=== PATIENT | male | born 1985 | race Caucasian/White ===

== ENCOUNTER 2021-03-22 21:34 | Emergency (ER) | payer SELFPAY ==
[~2021-03-22] VITALS: Ht 175.2 cm; Wt 86.2 kg
== END 2021-03-22 22:32 | disposition left against medical advice (07) ==
LOC: ED 21:34
DX: T50.991A Poisoning by other drugs, medicaments and biological substances, accidental (unintentional), initial encounter (principal); R40.20 Unspecified coma; Z53.21 Procedure and treatment not carried out due to patient leaving prior to being seen by health care provider; Y92.89 Other specified places as the place of occurrence of the external cause

== ENCOUNTER → 2023-06-17 | Outpatient (CLI) | payer SELFPAY | END | disposition home or self-care (01) | LOC: LAB 16:45 | PROVIDERS: ATTEND Family Medicine | DX: F90.0 Attention-deficit hyperactivity disorder, predominantly inattentive type (principal) ==

== ENCOUNTER → 2023-06-24 | Outpatient (CLI) | payer SELFPAY | END | disposition home or self-care (01) | LOC: LAB 16:55 | PROVIDERS: ATTEND Family Medicine | DX: F15.90 Other stimulant use, unspecified, uncomplicated (principal) ==

== ENCOUNTER → 2023-07-07 | Outpatient (CLI) | payer OTHER ==
[2023-07-07 13:36] LABS: URINE AMPHETAMINES Negative (1000ng/ml); URINE BARBITURATES Negative (200ng/ml); URINE BENZODIAZEPINES Negative (200ng/ml); URINE CANNABINOIDS (THC) Negative (50ng/ml); URINE COCAINE Negative (300ng/ml); URINE METHADONE Negative (300ng/ml); URINE OPIATES Negative (300ng/ml); URINE PHENCYCLIDINE Negative (25ng/ml)
== END ==
LOC: LAB 12:51
PROVIDERS: ATTEND Family Medicine
DX: F90.9 Attention-deficit hyperactivity disorder, unspecified type (principal)

== ENCOUNTER → 2023-07-29 | Outpatient (CLI) | payer SELFPAY | END | disposition home or self-care (01) | LOC: LAB 12:50 | PROVIDERS: ATTEND Family Medicine | DX: F90.9 Attention-deficit hyperactivity disorder, unspecified type (principal) ==

== ENCOUNTER → 2023-08-03 | Outpatient (CLI) | payer SELFPAY | END | disposition home or self-care (01) | LOC: US 08:00 | PROVIDERS: ATTEND Family Medicine | DX: K76.0 Fatty (change of) liver, not elsewhere classified (principal); K82.4 Cholesterolosis of gallbladder ==

== ENCOUNTER → 2023-08-06 | Outpatient (CLI) | payer SELFPAY | END | disposition home or self-care (01) | LOC: LAB 13:22 | PROVIDERS: ATTEND Family Medicine | DX: Z13.89 Encounter for screening for other disorder (principal); Z79.899 Other long term (current) drug therapy ==